=== PATIENT | male | born 1950 | race Caucasian/White ===

== ENCOUNTER 2020-11-19 09:01 | Outpatient (CLI) | payer MEDICARE, OTHER, SELFPAY ==
--- NOTE | ~2020-11-19 | CT_ITS ---
EXAMINATION: CT abdomen pelvis wo/w con DATE: 11/19/2020 10:27 INDICATION: Gross hematuria TECHNIQUE: Computed tomography (CT) of the abdomen and pelvis was performed without and subsequently with 130 cc Omnipaque 350 intravenous contrast. Automated exposure control and iterative reconstructi on technique were employed. Exam dose: 3264.63 mGy-cm total exam DLP. COMPARISON: None. FINDINGS: The lung bases are clear of infiltrate or consolidation. No pericardial or pleural effusion . Heart size is borderline. There are 2 up to approximately 5.5 mm stones in the dependent aspect of the gallbladder. No apparent color wall thickening or any pericholecystic fluid or fat stranding. Diffuse hepatic steatosis. No hepatic, splenic, pancreatic, adrenal or renal space-occupying mass les ion. No bile duct or pancreatic duct dilatation. No splenomegaly. There is a punctate calcification o f the pancreatic head suggesting mild chronic pancreatitis. There is suggestion of a couple of subtle punctate nonobstructing lower pole right renal calculi and suggestion of several nonobstructing punctate mid and lower pole left renal calculi. There is an approximately 3 mm proximal right ureteral calculus with minimal if any right hydronephro sis. There is perinephric stranding and fluid on the right. No left ureteral calculus or left hydroureteronephrosis. The urinary bladder, prostate gland and semi nal vesicles are unremarkable. There is atherosclerotic calcification of the abdominal aorta and prominent calcifications at the asiya gins of the superior mesenteric and left and to a lesser extent right renal arteries. No abdominal ao rtic aneurysm. No intraperitoneal or retroperitoneal or pelvic mass lesion or adenopathy or ascites. Small fat-containing inguinal hernias. There is diverticulosis of the sigmoid colon; no CT evidence of diverticulitis. No bowel obstruction, bowel wall thickening, pneumatosis or intraperitoneal free air. Prominent degenerative spurring of the included lower thoracic and lumbar spine with severe degenerat salvatore disease at multiple levels, especially severe at T10-11 and L2-3. There is prominent degenerative change at the apophyseal joints, with associated grade 1 anterolisthe sis at L4-5. IMPRESSION: Cholelithiasis Diffuse hepatic steatosis 3 mm proximal right ureteral calculus with minimal if any right hydronephrosis Several subtle punctate nonobstructing bilateral renal calculi Diverticulosis of sigmoid colon Reviewed, dictated and finalized at [facility]. Reviewed, dictated and finalized at [facility].
[2020-11-19 10:22] LABS: Estimated Glomerular Filt Rate > 60
== END 2020-11-19 09:02 | disposition home or self-care (01) ==
PROVIDERS: PCP Family Medicine; Visit Provider Family Medicine
DX: R31.0 Gross hematuria (principal); K57.30 Diverticulosis of large intestine without perforation or abscess without bleeding; K76.0 Fatty (change of) liver, not elsewhere classified; N20.2 Calculus of kidney with calculus of ureter
CPT/HCPCS: 74178; Q9967

== ENCOUNTER 2020-12-12 11:20 | Outpatient (CLI) | payer MEDICARE, OTHER, SELFPAY | END 2020-12-12 11:21 | disposition home or self-care (01) | LOC: ANHCOVIDVC 11:20 | PROVIDERS: PCP Family Medicine | DX: Z23 Encounter for immunization (principal) | CPT/HCPCS: 0001A; 91300 ==

== ENCOUNTER 2021-01-02 11:08 | Outpatient (CLI) | payer MEDICARE, OTHER, SELFPAY | END 2021-01-02 11:09 | disposition home or self-care (01) | LOC: ANHCOVIDVC 11:08 | PROVIDERS: PCP Family Medicine | DX: Z23 Encounter for immunization (principal) | CPT/HCPCS: 0002A; 91300 ==

== ENCOUNTER 2021-02-02 12:57 | Outpatient (CLI) | payer MEDICARE, OTHER, SELFPAY ==
--- NOTE | ~2021-02-02 | XR_ITS ---
EXAMINATION: XR abdomen/kub 1V EXAM DATE: 02/02/2021 13:28 INDICATION: Right ureteral stone. TECHNIQUE: Frontal projection of the upper abdomen, frontal projection lower abdomen/pelvis for inter pretation. Comparison is made to prior examination from 12/06/2011. Correlation was made with CT abdome n pelvis 11/19/2020. FINDINGS: Correlating with prior CT scan, patient has large amount of retroperitoneal fat in the righ t ureter likely projects over the spine on these frontal images. Can't confidently identify or confir m presence of previously seen mid ureteral stone. Nonobstructive bowel gas pattern. There is moderate to severe lumbar spondylosis. There is no organomegaly. IMPRESSION: No suspicious calcifications, but right mid ureteral stone seen on October CT would not lik fernando be identified if present. Reviewed, dictated and finalized at [facility]. IMPRESSION: No suspicious calcifications, but right mid ureteral stone seen on October CT would not likely be identified if present.
== END 2021-02-02 12:58 | disposition home or self-care (01) ==
LOC: ANHIMG 13:10
PROVIDERS: PCP Family Medicine; Visit Provider Urology
DX: N20.1 Calculus of ureter (principal)
CPT/HCPCS: 74018

== ENCOUNTER 2021-05-09 12:28 | Outpatient (CLI) | payer MEDICARE, OTHER, SELFPAY | END 2021-05-09 12:29 | disposition home or self-care (01) | LOC: ANHAUDIO 12:31 | PROVIDERS: PCP Family Medicine; Visit Provider Otolaryngology | DX: H93.13 Tinnitus, bilateral (principal); H90.3 Sensorineural hearing loss, bilateral | CPT/HCPCS: 92557; 92567 ==

== ENCOUNTER 2023-12-12 10:53 | Inpatient (IN) | payer MEDICARE, OTHER, SELFPAY ==
[2023-12-12] VITALS (36 sets, daily range): BP systolic 90–146; BP diastolic 65–130; PULSE 66–152; RESP 12–26; TEMP 36.1–36.8; O2SAT 89–100; BMI 40.2; BMI 41.1
--- NOTE | ~2023-12-12 | XR_ITS ---
EXAMINATION: XR chest 2V DATE: 12/12/2023 12:09 INDICATION: Tachycardia and atrial fibrillation. Weakness. TECHNIQUE: frontal and lateral views of the chest were obtained. COMPARISON: Chest CT dated 02/01/2019 FINDINGS: The lungs are clear with no focal airspace opacities, pulmonary edema, pleural effusion or pneumothor ax. Cardiomegaly with prominent density sign consistent with left severe right glenohumeral osteoarth ritis. Bilateral glenohumeral osteoarthritis, severe on the right and moderate severity at the left. IMPRESSION: 1. No acute cardiopulmonary disease. 2. Cardiomegaly with left atrial enlargement. Reviewed, dictated and finalized at [facility].
--- NOTE | 2023-12-12 11:18 | ED.ARRPALP ---
HPI - Arrhythmia/Palpitations General Chief Complaint: Arrhythmia/Palpitations Stated Complaint: palpitations Time Seen by Provider: 12/12/23 10:57 Source: patient Mode of arrival: ambulatory History of Present Illness HPI narrative: 73-year-old male with AFib paroxysmal presenting with palpitations. He thinks he is in AFib. He has been feeling weak when he exerts himself for the last few days. Related Data Home Medications Medication Instructions Recorded Confirmed alpha lipoic acid 200 mg capsule 200 mg PO BID 04/04/20 07/17/23 amlodipine 5 mg tablet 5 mg PO DAILY 04/04/20 07/17/23 apixaban 5 mg tablet (Eliquis) 5 mg PO BID 04/04/20 07/17/23 arginine HCl (L-arginine) 1,000 mg mg PO 04/04/20 07/17/23 tablet ascorbic acid (vitamin C) 1,000 mg 1 gm PO DAILY 04/04/20 07/17/23 tablet atorvastatin 20 mg tablet 20 mg PO DAILY 04/04/20 07/17/23 coenzyme Q10 200 mg/gram oral mg PO 04/04/20 07/17/23 powder (H2Q CoQ10) folic acid 800 mcg tablet 0.8 mg PO DAILY 04/04/20 07/17/23 levothyroxine 150 mcg tablet 150 mcg PO DAILY 04/04/20 07/17/23 metformin 500 mg tablet 500 mg PO BID 04/04/20 07/17/23 metoprolol succinate 100 mg 100 mg PO Q24H 04/04/20 07/17/23 capsule sprinkle, ext. release 24 hr vitamin B complex (B 1 tablet PO DAILY 04/04/20 07/17/23 Complex-Vitamin B12 tablet) fluticasone propionate 50 2 spray intranasal DAILY 01/18/23 07/17/23 mcg/actuation nasal spray,suspension spironolactone 25 mg tablet 25 mg PO DAILY 01/18/23 07/17/23 metoprolol tartrate 100 mg tablet 100 mg PO BID 12/12/23 12/12/23 (Lopressor) Allergies Allergy/AdvReac Type Severity Reaction Status Date / Time diltiazem Allergy Unknown Rash Verified 07/17/23 10:41 doxycycline Allergy Unknown Nausea Verified 07/17/23 10:41 Sulfa (Sulfonamide Allergy Unknown Nausea Verified 07/17/23 10:41 Antibiotics) Review of Systems Review of Systems: All systems reviewed & are unremarkable except as noted in HPI and below PMFSH Past Medical History Medical History Essential (primary) hypertension Fatty infiltration of liver Generalized anxiety disorder Hypothyroidism, unspecified Morbid obesity Obstructive sleep apnea (adult) (pediatric) Paroxysmal atrial fibrillation Pure hypercholesterolemia, unspecified Subjective tinnitus of both ears Type 2 diabetes mellitus with diabetic neuropathy, unspecified Social History Social History Smoking status: Former smoker Smoking end date: 04/02/00 Alcohol intake: current Drinks per week: 20 Substance use: never Lack of Transportation: No Lack of Food: Never True Current Housing: I Have Housing Concerned About Future Housing: No Difficulty Paying Gas/Electric Bills: No Difficulty Paying for Meds: No Currently Unemployed: No Education: Master's Degree or Higher Difficulty w/ Childcare or Family Care: No Living arrangements: alone Occupation/Education: retired Gender identity (if verbalized by the patient): Male Sexual Orientation (if Verbalized by the Patient): Straight or Heterosexual Exam Narrative: Constitutional: Generally well appearing, no acute distress Head: Atraumatic, no deformities. Eyes: Pupils equal, round, and reactive to light. Neck: Supple, no tracheal deviation, no JVD. ENMT: Mucous membranes moist Cardiovascular: Tachycardic. Irregularly irregular rhythm. S1, S2 auscultated. No murmurs, rubs, or gallops. No S3/S4. Normal Distal pulses. No peripheral edema. Respiratory: Lung sounds equal. No wheezes, rales, or rhonchi. Gastrointestinal: Abdomen was soft and non-tender. Non-distended. No rebound or guarding. Genitourinary: Deferred Musculoskeletal: Normal muscle tone and bulk. No obvious deformities or tenderness over extremities. Skin: No rashes. Neurological: Strength 5/5 in extremities. Cranial nerves I-XII grossly i
[2023-12-12 11:57] LABS: Basophils Absolute Auto 0.1 K/mm3 (0.0-0.1); Basophils Percent Auto 0.6 % (0.2-1.2); Eosinophils Absolute Auto 0.1 K/mm3 (0-0.3); Eosinophils Percent Auto 1.8 % (0-4.4); Hemoglobin 15.3 g/dL (14.0-18.0); Immature Granulocyte Absolute 0.05 K/mm3 (0.00-0.031); Immature Granulocyte Percent A 0.6 % (0-0.5); Lymphocytes Absolute Auto 2.08 K/mm3 (0.9-3.2); Lymphocytes Percent Auto 26.6 % (18.3-44.2); Mean Corpuscular HGB Conc 34.8 g/dl (32-36); Mean Corpuscular Hemoglobin 40.6 pg (26-34); Mean Corpuscular Volume 116.7 fl (80-100); Mean Platelet Volume 10.6 fl (7.4-10.4); Monocytes Absolute Auto 0.4 K/mm3 (0.1-0.6); Monocytes Percent Auto 5.6 % (2.6-8.5); Neutrophils Absolute Auto 5.1 K/mm3 (1.3-6.7); Neutrophils Percent Auto 64.8 % (45.5-73.1); Platelet Count Result 210 k/mm3 (150-375); Red Blood Count 3.77 M/mm3 (4.6-6.20); Red Cell Distribution Width 13.4 % (11.5-14.5); White Blood Count 7.8 K/mm3 (4.5-10.0)
[2023-12-12] MEDS: METOPROLOL TARTRATE INJ 5 MG/5 ML VIAL IV PUSH (12:10)
[2023-12-12 12:11] LABS: Alanine Aminotransferase 54 U/L (6-50); Albumin Level 4.4 g/dL (3.5-5.1); Alkaline Phosphatase 136 U/L (38-126); Anion Gap 16 mmol/L (4-12); Aspartate Amino Transferase 130 U/L (17-59); Blood Urea Nitrogen 12 mg/dL (9-20); Calcium 9.2 mg/dL (8.4-10.2); Carbon Dioxide 20 mmol/L (22-30); Chloride 102 mmol/L (98-107); Estimated CRCL calculation 112 ml/min; Estimated Glomerular Filt Rate > 60; Glucose 173 mg/dL (65-110); INR 1.7; Potassium 3.4 mmol/L (3.4-5.0); Prothrombin Time 20.6 Seconds (11.1-14.7); Sodium 138 mmol/L (137-145)
[2023-12-12 12:12] LABS: Partial Thromboplastin Time 33.2 Seconds (22.3-36.8)
[2023-12-12 12:18] LABS: Platelet Estimate Adequate (Adequate); Schistocytes None Seen; Smudge Cells FEW
[2023-12-12 12:23] LABS: NT Pro B Type Natriuretic Pept 303 pg/mL (19.9-100); Troponin I 0.034 ng/mL (0.000-0.034)
[2023-12-12] MEDS: METOPROLOL TARTRATE 50 MG TAB 100 MG PO (12:33)
[2023-12-12 14:53] LABS: Troponin I 0.039 ng/mL (0.000-0.034)
--- NOTE | 2023-12-12 16:49 | PC.NURSE ---
Dinner tray ordered for pt.
--- NOTE | 2023-12-12 20:48 | ADMGEN ---
This patient, Meng Torre, was admitted to IMU Room 213-01. Patient/family oriented to hospital policies and general routines including ID bracelet, bed and alarms, visiting hours, pain management, procedures, bathroom and other care routines, personal items, smoking policy, room service/diet, and visiting hours. Information on how to activate the Rapid Response Team has been discussed. Patient/Family are encouraged to report perceived risks to care and to ask questions if they do not understand what they are told or what they should do.
--- NOTE | 2023-12-12 23:01 | PM.IMHP ---
H&P: HPI History of Present Illness Date/Time: 12/12/23 23:01 Chief Complaint: generalized weakness Narrative: This is a 73-year-old male with past medical history significant for obstructive sleep apnea, paroxysmal atrial fibrillation, morbid obesity. Patient presented to the emergency room due to generalized weakness, decreased stamina, for the last week or so patient having palpitations, shortness of breath. Noted to have heart rate in the 130s, had palpitations, denies chest pain, denies leg swelling ,no fevers, no rigors, no chills, no nausea ,no vomiting, abdominal pain. patient found to have atrial fibrillation with rapid ventricular response placed on observation for further evaluation management and treatment. EXAMINATION: XR chest 2V DATE: 12/12/2023 12:09 INDICATION: Tachycardia and atrial fibrillation. Weakness. TECHNIQUE: frontal and lateral views of the chest were obtained. COMPARISON: Chest CT dated 02/01/2019 FINDINGS: The lungs are clear with no focal airspace opacities, pulmonary edema, pleural effusion or pneumothorax. Cardiomegaly with prominent density sign consistent with left severe right glenohumeral osteoarthritis. Bilateral glenohumeral osteoarthritis, severe on the right and moderate severity at the left. IMPRESSION: 1. No acute cardiopulmonary disease. 2. Cardiomegaly with left atrial enlargement. Review of Systems Review of Systems: PALPITATIONS, WEAKNESS, ELEVATED HEART RATE BY BLOOD PRESSURE MACHINE AT HOME Constitutional: Constitutional: Denies chills, Reports fatigue, Denies fever(s), Denies night sweats, Denies poor appetite and Reports weakness Eyes: Eyes: Denies change in vision ENT: Denies dysphagia, Denies vertigo, Denies dizziness and Denies odynophagia Cardiovascular: Cardiovascular: Denies chest pain, Reports irregular heart rhythm, Denies leg edema, Reports palpitations and Reports dyspnea Respiratory: Respiratory: Denies chest congestion and Denies cough Gastrointestinal: Gastrointestinal: Denies abdominal pain, Denies dyspepsia, Denies heartburn, Denies diarrhea, Denies nausea and Denies vomiting Genitourinary: Genitourinary: Denies dysuria Musculoskeletal: Musculoskeletal: Denies arthralgias Integumentary/Breasts: Skin/Breast: Denies rash Neurologic: Denies focal weakness and Denies Sensory deficit (Neuro) Psychiatric: Psychiatric: Reports no additional psychiatric complaints and Reports as per HPI Endocrine: Endocrine: Denies cold intolerance, Denies flushing, Denies heat intolerance, Denies polyphagia, Denies polydipsia, Denies polyuria and Denies palpitations Hematologic/Lymphatic: Hematologic/Lymphatic: Reports no additional hematologic/lymphatic complaints and Reports as per HPI Allergic/Immunologic: Allergic/Immunologic: Reports no additional allergic/immunologic complaints and Reports as per HPI PMFSH Past Medical History Medical History Essential (primary) hypertension Fatty infiltration of liver Generalized anxiety disorder Hypothyroidism, unspecified Morbid obesity Obstructive sleep apnea (adult) (pediatric) Paroxysmal atrial fibrillation Pure hypercholesterolemia, unspecified Subjective tinnitus of both ears Type 2 diabetes mellitus with diabetic neuropathy, unspecified Family History Family History (Updated 12/12/23 @ 20:54 by Morteza Saez RN) Father Angina at rest Mother Dementia Social History Social History Smoking packs per day: 1 Smoking cigarettes per day: 20.0 Years smoked: 30 Smoking pack-years: 30.00 Smoking status: Former smoker Tobacco type: cigarettes Smoking end date: 04/02/00 Alcohol intake: current Drinks per week: 21 Substance use: former Substance use type: former substance user Last use: 1970 Do You Feel Safe in your Home?: Yes Lack of Transportation: No Lack o
[2023-12-13] VITALS (12 sets, daily range): BP systolic 93–120; BP diastolic 63–75; PULSE 56–106; RESP 18–20; TEMP 36.1–36.4; O2SAT 93–95
[2023-12-13 01:05] LABS: Troponin I 0.037 ng/mL (0.000-0.034)
[2023-12-13] MEDS: LEVOTHYROXINE SODIUM 150 MCG TABLET PO (06:51)
[2023-12-13] MEDS: ASCORBIC ACID 500 MG TABLET 1000 MG PO (08:45)
[2023-12-13] MEDS: ATORVASTATIN 20 MG TABLET PO (08:45)
[2023-12-13] MEDS: amLODIPine BESYLATE 5 MG TABLET PO (08:45)
[2023-12-13] MEDS: APIXABAN 5 MG TABLET PO (08:45)
[2023-12-13] MEDS: SERTRALINE HCL 50 MG TABLET BY MOUTH (08:45)
[2023-12-13] MEDS: METOPROLOL TARTRATE 50 MG TAB 100 MG PO (08:46)
[2023-12-13] MEDS: SPIRONOLACTONE 25 MG TABLET PO (08:46)
[2023-12-13] MEDS: FOLIC ACID 0.4 MG TABLET 0.8 MG PO (08:46)
[2023-12-13] MEDS: VITAMIN B COMPLEX CAPSULE 1 CAP PO (08:46)
[2023-12-13 09:20] LABS: Basophils Absolute Auto 0.1 K/mm3 (0.0-0.1); Basophils Percent Auto 0.9 % (0.2-1.2); Eosinophils Absolute Auto 0.3 K/mm3 (0-0.3); Eosinophils Percent Auto 2.3 % (0-4.4); Hemoglobin 16.3 g/dL (14.0-18.0); Immature Granulocyte Absolute 0.06 K/mm3 (0.00-0.031); Immature Granulocyte Percent A 0.6 % (0-0.5); Lymphocytes Absolute Auto 2.79 K/mm3 (0.9-3.2); Lymphocytes Percent Auto 25.9 % (18.3-44.2); Mean Corpuscular Hemoglobin 40.9 pg (26-34); Mean Corpuscular Volume 120.3 fl (80-100); Mean Platelet Volume 10.6 fl (7.4-10.4); Monocytes Absolute Auto 0.7 K/mm3 (0.1-0.6); Monocytes Percent Auto 6.2 % (2.6-8.5); Neutrophils Absolute Auto 6.9 K/mm3 (1.3-6.7); Neutrophils Percent Auto 64.1 % (45.5-73.1); Platelet Count Result 272 k/mm3 (150-375); Red Blood Count 3.99 M/mm3 (4.6-6.20); Red Cell Distribution Width 13.2 % (11.5-14.5); White Blood Count 10.8 K/mm3 (4.5-10.0)
[2023-12-13 09:29] LABS: Lactic Acid Reflex 2.7 mmol/L (0.7-2.0)
[2023-12-13 09:30] LABS: Alanine Aminotransferase 70 U/L (6-50); Albumin Level 4.6 g/dL (3.5-5.1); Alkaline Phosphatase 122 U/L (38-126); Anion Gap 12 mmol/L (4-12); Aspartate Amino Transferase 199 U/L (17-59); Bilirubin,Total 2.1 mg/dL (0.2-1.3); Blood Urea Nitrogen 13 mg/dL (9-20); Calcium 9.2 mg/dL (8.4-10.2); Carbon Dioxide 26 mmol/L (22-30); Chloride 99 mmol/L (98-107); Estimated CRCL calculation 115 ml/min; Estimated Glomerular Filt Rate > 60; Glucose 142 mg/dL (65-110); Magnesium 1.5 mg/dL (1.6-2.3); Phosphorus 3.9 mg/dL (2.5-4.5); Potassium 3.6 mmol/L (3.4-5.0); Sodium 137 mmol/L (137-145)
[2023-12-13 09:45] LABS: Platelet Estimate Adequate (Adequate)
[2023-12-13 09:46] LABS: Anisocytosis 1+; Macrocytosis 1+ (NORMAL); Schistocytes None Seen
[2023-12-13 10:15] LABS: Hemoglobin A1C 5.9 % (<5.7); Procalcitonin 0.4 ng/mL
[2023-12-13 10:36] LABS: Folic Acid 5.3 ng/mL (2.76->20)
[2023-12-13 11:30] LABS: Glucose Point of Care 131 mg/dl (65-105)
[2023-12-13 12:15] LABS: Reflex Lactic Acid Yes or No Add Lactic
[2023-12-13 13:19] LABS: Lactic Acid 1.1 mmol/L (0.7-2.0)
--- NOTE | 2023-12-13 16:14 | PM.DS ---
DS: Admitting Diagnosis Discharge Date 12/13/23 Admitting Diagnosis Palpitations DS: Discharge Diagnosis Discharge Diagnosis (1) Atrial fibrillation with rapid ventricular response: Code(s): I48.91 - Unspecified atrial fibrillation Status: Acute (2) Morbid obesity: Code(s): E66.01 - Morbid (severe) obesity due to excess calories Status: Acute (3) Obstructive sleep apnea (adult) (pediatric): Code(s): G47.33 - Obstructive sleep apnea (adult) (pediatric) Status: Acute (4) Generalized anxiety disorder: Code(s): F41.1 - Generalized anxiety disorder Status: Acute (5) Pure hypercholesterolemia, unspecified: Code(s): E78.00 - Pure hypercholesterolemia, unspecified Status: Acute (6) Type 2 diabetes mellitus with diabetic neuropathy, unspecified: Qualifiers: Diabetes mellitus [facility] insulin use: without oysterman use Qualified Code(s): E11.40 - Type 2 diabetes mellitus with diabetic neuropathy, unspecified Code(s): E11.40 - Type 2 diabetes mellitus with diabetic neuropathy, unspecified Status: Acute (7) Fatty infiltration of liver: Code(s): K76.0 - Fatty (change of) liver, not elsewhere classified Status: Acute DS: Summary Hospital Course Reason for hospitalization: 73yo male with pAFib, bright liver disease, alcoholism and DM here for palpitations. Please see H&P for details. Hospital Course: Patient states he ran out of his Lopressor about a week ago. He ordered the medication but was mail order and had not arrived prior to this admission. He does state the medication is in his mailbox at this time. Patient felt palpitations and felt he was in atrial fibrillation. In the emergency room heart rate was running 120-140 range. CXR clear. He was given IV metoprolol and started on oral metoprolol. His heart rate improved. He had a significant macrocytosis probably related to his underlying liver disease. CBC otherwise was unremarkable. INR 1.7 again probably related to his anticoagulation and underlying liver problems. He was noted to have anion gap metabolic acidosis. Lactic acid was slightly elevated 2.7 but normal on repeat. Acidosis improved as well. Troponin climbed to 0.039 felt to be related to demand ischemia from the tachycardia. His BNP was 300. LFTs are mildly elevated and this has been noted before. Patient states this is related to his alcoholism. He was educated about the benefits of abstaining from alcohol use. He feels well today. No complaints of chest pain or shortness of breath. Heart rate is better controlled. He is requesting discharge. He overall did well and was able to be discharged home on 12/13/2023. Status at Discharge Cognitive/behavioral status at discharge: stable Time Spent with Patient Time attestation: Total time spent providing and/or coordinating discharge services: 34 minutes Time spent: Greater than 30 minutes Exam Narrative: AF 96.9 116/75 70 18 95%ra Gen - NARD Chest - CTA bilaterally, nml RR CV - irregularly irregular, nml RR Abd - Soft, NT/ND, Positive BS Ext - No pedal edema Psych - Nml mood and affect Skin - Warm and dry DS: Data Data Completed and Pending Labs on day of discharge: Labs from last 24 hours 12/13/23 12/13/23 12/13/23 13:03 11:27 08:39 WBC 10.8 H RBC 3.99 L Hgb 16.3 Hct 48.0 MCV 120.3 H MCH 40.9 H MCHC 34.0 RDW 13.2 Plt Count 272 MPV 10.6 H Immature Gran % (Auto) 0.6 H Neut % (Auto) 64.1 Lymph % (Auto) 25.9 [place] % (Auto) 6.2 Eos % (Auto) 2.3 Baso % (Auto) 0.9 Lymph # (Auto) 2.79 [place] # (Auto) 0.7 H Eos # (Auto) 0.3 Baso # (Auto) 0.1 Abs Immat Gran (auto) 0.06 H Absolute Neuts (auto) 6.9 H Absolute Nucleated RBC 0.000 Nucleated RBC % 0.0 Platelet Estimate Adequate Anisocytosis 1+ Macrocytosis 1+ Schistocytes None seen Sodium
== END 2023-12-13 17:12 | disposition home or self-care (01) | DRG 309 ==
LOC: ANHED 13:20 → ANHIMU 13:55
PROVIDERS: Student in an Organized Health Care Education/Training Program; Admitting Provider Student in an Organized Health Care Education/Training Program; Emergency Provider Emergency Medicine; PCP Family Medicine; Visit Provider Internal Medicine
DX: I48.0 Paroxysmal atrial fibrillation (principal); Z68.41 Body mass index [BMI] 40.0-44.9, adult; I10 Essential (primary) hypertension; E11.40 Type 2 diabetes mellitus with diabetic neuropathy, unspecified; E03.9 Hypothyroidism, unspecified; E66.01 Morbid (severe) obesity due to excess calories; E78.00 Pure hypercholesterolemia, unspecified; K76.0 Fatty (change of) liver, not elsewhere classified; H93.13 Tinnitus, bilateral; G47.33 Obstructive sleep apnea (adult) (pediatric); F41.1 Generalized anxiety disorder; Z79.01 Long term (current) use of anticoagulants; Z87.891 Personal history of nicotine dependence
CPT/HCPCS: 36415; 71046; 80053; 82607; 82746; 82948; 83036; 83605; 83735; 83880; 84100; 84145; 84443; 84484; 85025; 85610; 85730; 86140; 96374; 99285; A9270; G0378